=== PATIENT | male | born 1985 | race American Indian/Alaskan Native ===

== ENCOUNTER 2018-02-19 20:00 | Emergency (ER) | payer MEDICARE ==
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
[2018-02-19 21:33] LABS: Bilirubin,Urine NEG (Negative); Blood,Urine NEG (Negative); Color,Urine Yellow (Yellow); Protein,Urine <15 mg/dL mg/dL (Negative); Urobilinogen,Urine < 2.0 mg/dL (<2.0)
[2018-02-19 21:56] LABS: Basophils % (Auto) 0.3 % (0.0-1.8); Eosinophils # (Auto) 0.2 K/mm3 (0.0-0.4); Eosinophils % (Auto) 2.1 % (0.0-4.3); Hematocrit 43.8 % (35.5-45.6); Hemoglobin 14.5 gm/dl (11.8-15.2); Lymphocytes # (Auto) 1.2 K/mm3 (1.2-5.4); Lymphocytes % (Auto) 13.3 % (13.4-35.0); Mean Corpuscular HGB Conc 33 % (32-34); Mean Corpuscular Hemoglobin 26 pg (28-32); Mean Corpuscular Volume 79 fl (84-94); Monocytes # (Auto) 0.7 K/mm3 (0.0-0.8); Monocytes % (Auto) 7.9 % (0.0-7.3); Platelet Count 288 K/mm3 (140-440); Red Blood Count 5.56 M/mm3 (3.65-5.03); Red Cell Distribution Width 13.5 % (13.2-15.2)
[2018-02-19 22:06] LABS: Amphetamine Screen,Urine PRESUMPTIVE NEGATIVE; Cannabinoid Screen,Urine PRESUMPTIVE NEGATIVE; Cocaine Screen,Urine PRESUMPTIVE NEGATIVE; Methadone Screen,Urine PRESUMPTIVE NEGATIVE; Opiate Screen,Urine PRESUMPTIVE NEGATIVE
[2018-02-19 22:11] LABS: BUN/Creatinine Ratio 19; Blood Urea Nitrogen 17 mg/dL (9-20); Calcium 9.2 mg/dL (8.4-10.2); Hemolysis Index 51
[2018-02-19 22:21] LABS: Benzodiazepines Screen,Urine PRESUMPTIVE POSITIVE
[2018-02-20 12:00] VITALS: BP 132/75
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
== END 2018-02-20 15:25 | disposition home or self-care (01) ==
LOC: EEVIPCON 20:00 → ED 20:00
DX: Z00.8 Encounter for other general examination (principal)
CPT/HCPCS: 36415; 80048; 80307; 81001; 85025; 99284; G0480; 80320

== ENCOUNTER 2018-04-07 19:54 | Emergency (ER) | payer MEDICARE ==
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
[2018-04-07 21:28] LABS: Basophils % (Auto) 0.6 % (0.0-1.8); Eosinophils # (Auto) 0.2 K/mm3 (0.0-0.4); Eosinophils % (Auto) 2.1 % (0.0-4.3); Hematocrit 45.3 % (35.5-45.6); Hemoglobin 15.4 gm/dl (11.8-15.2); Lymphocytes # (Auto) 1.4 K/mm3 (1.2-5.4); Lymphocytes % (Auto) 19.1 % (13.4-35.0); Mean Corpuscular HGB Conc 34 % (32-34); Mean Corpuscular Hemoglobin 27 pg (28-32); Mean Corpuscular Volume 78 fl (84-94); Monocytes # (Auto) 0.7 K/mm3 (0.0-0.8); Monocytes % (Auto) 8.9 % (0.0-7.3); Platelet Count 320 K/mm3 (140-440); Red Blood Count 5.79 M/mm3 (3.65-5.03); Red Cell Distribution Width 13.6 % (13.2-15.2)
[2018-04-07 21:39] LABS: BUN/Creatinine Ratio 10; Blood Urea Nitrogen 10 mg/dL (9-20); Calcium 9.9 mg/dL (8.4-10.2); Hemolysis Index 3
[2018-04-07 22:08] LABS: Amphetamine Screen,Urine PRESUMPTIVE NEGATIVE; Cannabinoid Screen,Urine PRESUMPTIVE NEGATIVE; Cocaine Screen,Urine PRESUMPTIVE NEGATIVE; Methadone Screen,Urine PRESUMPTIVE NEGATIVE; Opiate Screen,Urine PRESUMPTIVE NEGATIVE
[2018-04-07 22:12] LABS: Bilirubin,Urine NEG (Negative); Blood,Urine SM (Negative); Color,Urine Yellow (Yellow); Protein,Urine <15 mg/dL mg/dL (Negative); RBC,Urine < 1.0 /HPF (0.0-6.0); Urobilinogen,Urine < 2.0 mg/dL (<2.0)
[2018-04-07 22:30] LABS: Benzodiazepines Screen,Urine PRESUMPTIVE POSITIVE
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
[2018-04-09 03:24] VITALS: BP 124/82
--- NOTE | 2018-04-09 12:42 | Progress Note ---
Subjective - Reason for Consult Consult date: 04/09/18 Reason for consult: Psychiatric Follow-up Evaluation - Chief Complaint Chief complaint: " Mental Status Exam - Vital signs Last Vital Signs Temp 98.6 F 04/09/18 00:00 Pulse 88 04/09/18 00:00 Resp 18 04/09/18 00:00 BP 124/82 04/09/18 00:00 Pulse Ox 98 04/09/18 00:00
== END 2018-04-09 10:24 | disposition home or self-care (01) ==
LOC: EEVIPCON 19:54 → ED 19:54
DX: F20.9 Schizophrenia, unspecified (principal)
CPT/HCPCS: 36415; 80048; 80307; 81001; 85025; 99285; G0480; 80320

== ENCOUNTER 2018-10-02 08:34 | Emergency (ER) | payer MEDICARE ==
[2018-10-02 08:46] VITALS: BP 133/80
--- NOTE | 2018-10-02 09:24 | Emergency Department Report ---
ED General Adult HPI - General Chief complaint: High BP Stated complaint: HBP Time Seen by Provider: 10/02/18 09:00 Source: patient, RN notes reviewed Mode of arrival: Ambulatory Limitations: No Limitations - History of Present Illness Initial comments: Mr. Dennis is a 33 year old male who presents from a detention with elevated blood pressure. Mr. Dennis has a history of high blood pressure and schizophrenia. This detention staff member has treated him for several years. She is very familiary with Mr. Dennis. Blood pressure was greater than 200 systolic BP with a wrist blood pressure cuff. She has used this cuff consistently for quite some times. HTN has been easily managed with medications. Clonidine and hydrochlorothiazide had recently been discontinued by his psychiatrist Dr. Serrano for hypotension. He is still taking lisinopril 20 mg each morning. Formerly, took hydrochlorothiazide 12.5 mg and clonidine 0.1 mg daily. Mr. Dennis denies any symptoms of this headache dizziness or blurred vision. No complaints. He does have a primary care physician who manages his blood pressure. Mr. Dennis currently does not have any complaints or physical concerns. - Related Data Home Medications Medication Instructions Recorded Confirmed Last Taken Unobtainable 04/08/18 04/08/18 Unknown Allergies Allergy/AdvReac Type Severity Reaction Status Date / Time No Known Allergies Allergy Verified 02/20/18 02:47 ED Review of Systems ROS: Stated complaint: HBP Other details as noted in HPI Comment: All other systems reviewed and negative Constitutional: denies: fever, malaise Respiratory: denies: cough Cardiovascular: denies: chest pain Neurological: denies: headache ED Past Medical Hx - Past Medical History Previous Medical History?: Yes Hx Hypertension: Yes Hx Psychiatric Treatment: Yes - Surgical History Past Surgical History?: No - Social History Smoking Status: Never Smoker Substance Use Type: None - Medications Home Medications: Home Medications Medication Instructions Recorded Confirmed Last Taken Type Unobtainable 04/08/18 04/08/18 Unknown History ED Physical Exam - General Limitations: No Limitations General appearance: alert, in no apparent distress - Head Head exam: Present: atraumatic, normocephalic - Eye Eye exam: Present: normal appearance - ENT ENT exam: Present: mucous membranes moist - Neck Neck exam: Present: normal inspection, full ROM. Absent: tenderness, meningismus - Respiratory Respiratory exam: Present: normal lung sounds bilaterally. Absent: respiratory distress, wheezes, rales, rhonchi - Cardiovascular Cardiovascular Exam: Present: regular rate, normal rhythm, normal heart sounds. Absent: systolic murmur, diastolic murmur, rubs, gallop - GI/Abdominal GI/Abdominal exam: Present: soft, normal bowel sounds. Absent: distended, tenderness, guarding, rebound - Rectal Rectal exam: Present: deferred - Extremities Exam Extremities exam: Present: normal inspection - Back Exam Back exam: Present: normal inspection - Neurological Exam Neurological exam: Present: alert, oriented X3 - Psychiatric Psychiatric exam: Present: other (flat affect) - Skin Skin exam: Present: warm, dry, intact, normal color. Absent: rash ED Course Vital Signs 10/02/18 08:43 Temperature 97.7 F Pulse Rate 107 H Respiratory 20 Rate Blood Pressure 133/80 O2 Sat by Pulse 97 Oximetry ED Medical Decision Making - Medical Decision Making Hypertensive urgency, asymptomatic. Blood pressure in triage, approximately 2 hours after lisinopril dose, is currently 133/80. I measured blood pressure using same cuff brought by staff member. Blood pressure corresponded 139/90. I feel that the cuff is working appropriately. I do suspect rebound hypertension due to recent discontinuation of clonidine. It appears that the lisinopril will be appropriate. I have asked staff member to wait 2 hours after lisinopril dose before recording daily blood pressure readings. If this blood pressure reading as high, he should be evaluated in the ER or have contact with his PCP. Critical care attestation.: If time is entered above; I have spent that time in minutes in the direct care of this critically ill patient, excluding procedure time. ED Disposition Clinical Impression: Asymptomatic hypertensive urgency, Rebound hypertension Disposition: DC-01 TO HOME OR SELFCARE Is pt being admited?: No Does the pt Need Aspirin: No Condition: Stable Instructions: Hypertension (ED) Additional Instructions: Discontinuation of clonidine will cause rebound hypertension. Rebound hypertension will cause very high blood pressure readings. Please take daily blood pressure measurements 2 hours after morning lisinopril dose.
== END 2018-10-02 09:35 | disposition home or self-care (01) ==
LOC: ED 08:34
DX: I16.0 Hypertensive urgency (principal); I10 Essential (primary) hypertension; F20.9 Schizophrenia, unspecified
CPT/HCPCS: 99282

== ENCOUNTER 2019-02-02 19:13 | Emergency (ER) | payer MEDICARE ==
[2019-02-02 21:04] LABS: Basophils % (Auto) 0.4 % (0.0-1.8); Eosinophils # (Auto) 0.2 K/mm3 (0.0-0.4); Hematocrit 41.9 % (35.5-45.6); Hemoglobin 14.1 gm/dl (11.8-15.2); Lymphocytes # (Auto) 1.3 K/mm3 (1.2-5.4); Lymphocytes % (Auto) 19.1 % (13.4-35.0); Mean Corpuscular HGB Conc 34 % (32-34); Mean Corpuscular Volume 80 fl (84-94); Monocytes # (Auto) 0.5 K/mm3 (0.0-0.8); Platelet Count 285 K/mm3 (140-440); Red Blood Count 5.26 M/mm3 (3.65-5.03); Red Cell Distribution Width 13.9 % (13.2-15.2)
[2019-02-02 21:25] LABS: BUN/Creatinine Ratio 7; Blood Urea Nitrogen 6 mg/dL (9-20); Calcium 9.2 mg/dL (8.4-10.2); Hemolysis Index 11
[2019-02-02 22:19] LABS: Bilirubin,Urine NEG (Negative); Blood,Urine NEG (Negative); Color,Urine Colorless (Yellow); Protein,Urine <15 mg/dL mg/dL (Negative); Urobilinogen,Urine < 2.0 mg/dL (<2.0); WBC,Urine < 1.0 /HPF (0.0-6.0)
[2019-02-02 22:27] LABS: Amphetamine Screen,Urine PRESUMPTIVE NEGATIVE; Cannabinoid Screen,Urine PRESUMPTIVE NEGATIVE; Cocaine Screen,Urine PRESUMPTIVE NEGATIVE; Methadone Screen,Urine PRESUMPTIVE NEGATIVE; Opiate Screen,Urine PRESUMPTIVE NEGATIVE
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
[2019-02-02 23:02] LABS: Benzodiazepines Screen,Urine PRESUMPTIVE POSITIVE
[2019-02-03 08:42] VITALS: BP 135/82
[2019-02-03] MEDS ORDERED: AMMONIA INHALANT IH ONE (10:18)
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
== END 2019-02-03 10:33 | disposition home or self-care (01) ==
LOC: ED 19:13 → EEVIPCON 19:13 → ED 02-03 10:33
DX: F79 Unspecified intellectual disabilities (principal); R45.4 Irritability and anger; I10 Essential (primary) hypertension
CPT/HCPCS: 36415; 80048; 80307; 81001; 85025; 99284; G0480; 80320

== ENCOUNTER 2020-01-13 18:46 | Emergency (ER) | payer MEDICARE ==
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
[2020-01-13 20:37] LABS: Bilirubin,Urine NEG (Negative); Blood,Urine NEG (Negative); Color,Urine Colorless (Yellow); Protein,Urine <15 mg/dL mg/dL (Negative); Urobilinogen,Urine < 2.0 mg/dL (<2.0)
[2020-01-13 20:38] LABS: Basophils % (Auto) 0.4 % (0.0-1.8); Eosinophils # (Auto) 0.2 K/mm3 (0.0-0.4); Eosinophils % (Auto) 1.6 % (0.0-4.3); Hematocrit 43.7 % (35.5-45.6); Hemoglobin 14.7 gm/dl (11.8-15.2); Lymphocytes # (Auto) 0.9 K/mm3 (1.2-5.4); Lymphocytes % (Auto) 9.2 % (13.4-35.0); Mean Corpuscular HGB Conc 34 % (32-34); Mean Corpuscular Volume 79 fl (84-94); Monocytes # (Auto) 0.7 K/mm3 (0.0-0.8); Monocytes % (Auto) 6.5 % (0.0-7.3); Platelet Count 289 K/mm3 (140-440); Red Blood Count 5.57 M/mm3 (3.65-5.03); Red Cell Distribution Width 13.7 % (13.2-15.2)
[2020-01-13 20:44] LABS: Amphetamine Screen,Urine PRESUMPTIVE NEGATIVE; Cannabinoid Screen,Urine PRESUMPTIVE NEGATIVE; Cocaine Screen,Urine PRESUMPTIVE NEGATIVE; Methadone Screen,Urine PRESUMPTIVE NEGATIVE; Opiate Screen,Urine PRESUMPTIVE NEGATIVE
[2020-01-13 20:52] LABS: BUN/Creatinine Ratio 16; Blood Urea Nitrogen 13 mg/dL (9-20); Calcium 9.6 mg/dL (8.4-10.2); Hemolysis Index 9
[2020-01-13 20:56] LABS: Benzodiazepines Screen,Urine PRESUMPTIVE POSITIVE
[2020-01-14 08:13] VITALS: BP 110/66
== END 2020-01-14 14:15 | disposition home or self-care (01) ==
LOC: ED 18:46
DX: I10 Essential (primary) hypertension (principal); F78 Other intellectual disabilities; Z00.00 Encounter for general adult medical examination without abnormal findings; Z79.899 Other long term (current) drug therapy
CPT/HCPCS: 36415; 80048; 80307; 80320; 81001; 85025; G0480

== ENCOUNTER 2021-01-24 18:49 | Emergency (ER) | payer MEDICARE ==
[2021-01-24] MEDS ORDERED: ZIPRASIDONE MESYLATE 20 MG VIAL IM ONE (19:36)
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
[2021-01-24 20:40] LABS: Basophils % (Auto) 0.3 % (0.0-1.8); Eosinophils # (Auto) 0.1 K/mm3 (0.0-0.4); Eosinophils % (Auto) 0.6 % (0.0-4.3); Hematocrit 46.3 % (35.5-45.6); Hemoglobin 15.5 gm/dl (11.8-15.2); Lymphocytes # (Auto) 0.9 K/mm3 (1.2-5.4); Lymphocytes % (Auto) 10.1 % (13.4-35.0); Mean Corpuscular HGB Conc 34 % (32-34); Mean Corpuscular Volume 80 fl (84-94); Monocytes # (Auto) 0.5 K/mm3 (0.0-0.8); Platelet Count 292 K/mm3 (140-440); Red Blood Count 5.77 M/mm3 (3.65-5.03); Red Cell Distribution Width 13.3 % (13.2-15.2)
[2021-01-24 20:56] LABS: Alanine Aminotransferase 31 units/L (7-56); Albumin 4.4 g/dL (3.9-5); BUN/Creatinine Ratio 10; Blood Urea Nitrogen 8 mg/dL (9-20); Calcium 9.2 mg/dL (8.4-10.2); Hemolysis Index 9
[2021-01-24 21:45] LABS: Bilirubin,Urine NEG (Negative); Blood,Urine NEG (Negative); Color,Urine Straw (Yellow); Protein,Urine <15 mg/dL mg/dL (Negative); Urobilinogen,Urine < 2.0 mg/dL (<2.0)
[2021-01-24 21:53] LABS: Amphetamine Screen,Urine PRESUMPTIVE NEGATIVE; Benzodiazepines Screen,Urine PRESUMPTIVE POSITIVE; Cannabinoid Screen,Urine PRESUMPTIVE NEGATIVE; Cocaine Screen,Urine PRESUMPTIVE NEGATIVE; Methadone Screen,Urine PRESUMPTIVE NEGATIVE; Opiate Screen,Urine PRESUMPTIVE NEGATIVE
[2021-01-24] MEDS: BENZTROPINE 1 MG TAB PO SCH (22:55)
[2021-01-25] MEDS ORDERED: ALPRAZolam 1 MG TAB PO SCH (08:00)
[2021-01-25] MEDS ORDERED: FLUTICASONE PROPIONATE NASAL SPRAY 16 GM NS SCH (10:00)
[2021-01-25] MEDS ORDERED: CHOLECALCIFEROL (VIT D3) 1000 UNIT (25 mcg) TAB PO SCH (10:00)
[2021-01-25] MEDS ORDERED: risperiDONE 1 MG TAB PO SCH (10:00)
[2021-01-25] MEDS ORDERED: QUEtiapine 100 MG TAB PO SCH (10:00)
[2021-01-25] MEDS ORDERED: amLODIPine 10 MG TAB PO SCH (10:00)
[2021-01-25] MEDS ORDERED: HALOPERIDOL 2 MG TAB PO SCH (10:00)
[2021-01-25] MEDS ORDERED: hydroCHLOROthiazide 12.5 MG CAP PO SCH (10:00)
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
[2021-01-25] MEDS: BENZTROPINE 1 MG TAB PO SCH (11:00)
[2021-01-25 11:26] VITALS: BP 120/79
== END 2021-01-25 15:04 | disposition home or self-care (01) ==
LOC: ED 18:49
DX: R45.6 Violent behavior (principal); Z20.822 Contact with and (suspected) exposure to COVID-19; I10 Essential (primary) hypertension
CPT/HCPCS: 36415; 80053; 80307; 81001; 85025; 99284; U0003; 80320; G0480